=== PATIENT | male | born 1940 | race African-American/Black ===

== ENCOUNTER → 2018-10-31 | Day surgery (SDC) | payer OTHER ==
[~2018-10-31] MED LIST: ACETAMINOPHEN 325 MG TABLET PO PRN; ALBUTEROL SULFATE 2.5 MG/3 ML NEBU. NEB PRN; ATROPINE 0.5 MG/5 ML DISP.SYRIN. IV PRN; FAMO-63 PO; HYDR50TA6 PO; INSU100I27 SQ; LIDOCAINE 2% PF Vial for OR 5 ML VIAL. ONE; LOSA100T14 PO; MIDAZOLAM HCL PF 2 MG/2 ML VIAL. IV PRN; NOVALOG SQ; ONDANSETRON PF 4 MG/2 ML VIAL. IV PRN; PHENOL ORAL SPRAY 177ML BOTTLE. MM PRN; POTA20TA4 PO; PROPOFOL 40 ML IV ONE; diphenhydrAMINE 50 MG/ML VIAL IV PRN
[2018-10-31] MEDS: IV RINGERS SOLUTION,LACTATED 1,000 ML IV SCH (08:39)
[2018-10-31 11:25] VITALS: BP 156/83
--- NOTE | 2018-11-04 11:07 | PATHOLOGY ---
[facility] Accession Number: [id number] . 01 Material submitted: . PART A: colon - TRANSVERSE COLON. Modifiers: transverse PART B: colon - ASCENDING COLON. Modifiers: ascending PART C: colon - TRANSVERSE COLON BIOPSY. Modifiers: transverse . 01 Clinical history: . None provided . 02 Diagnosis: A. Transverse colon, biopsy: - Tubular adenoma. - Negative for high-grade dysplasia. . B. Ascending colon, biopsy: - Tubular adenoma. - Negative for high-grade dysplasia. . C. Transverse colon, biopsy: - Tubular adenoma. - Negative for high-grade dysplasia. . (MAP:[facility] [place]; 11/03/2018) . Co-review: Dr. Juan JAY 11/03/2018 1720 Local . 02 Electronically signed: . Alex Lomeli MD, Pathologist NPI- [id number] . 01 Gross description: . A. The specimen is received in formalin, labeled "Britton Kirit, transverse colon". Received is a segment of pale goyal soft tissue measuring 0.6 cm in maximum dimensions. The specimen is submitted entirely in cassette A1. . B. The specimen is received in formalin, labeled "Britton Kirit, ascending colon". Received are three segments of pale goyal soft tissue ranging in size from 0.2 to 0.8 cm in maximum dimensions. The specimen is submitted entirely in cassette B1. . C. The specimen is received in formalin, labeled "Britton Kirit, transverse colon biopsy". Received are two segments of pale goyal soft tissue ranging in size from 0.5 to 0.9 cm in maximum dimensions. The specimen is submitted entirely in cassette C1. ([facility]; 11/02/2018) QAC/QAC 11/02/2018 [facility] Local . 02 Pathologist provided ICD-10: D12.3, D12.2 . 02 CPT . 284001, 091919, [id number] Specimen Comment: A courtesy copy of this report has been sent to Specimen Comment: [phone], . Specimen Comment: Report sent to / DR LITTLE Performed at: [address], [place], [place] [id number] MD Fidel Thorpe MD Phone: [phone] Performed at: [address] [id number] MD Belen Matias MD Phone: [phone]
== END ==
LOC: SURG 08:03
PROVIDERS: ATTEND Internal Medicine Gastroenterology
DX: Z12.11 Encounter for screening for malignant neoplasm of colon (principal); D12.3 Benign neoplasm of transverse colon; D12.2 Benign neoplasm of ascending colon; K57.30 Diverticulosis of large intestine without perforation or abscess without bleeding; K64.8 Other hemorrhoids; K64.4 Residual hemorrhoidal skin tags; I10 Essential (primary) hypertension; E11.9 Type 2 diabetes mellitus without complications; Z86.010 Personal history of colon polyps; Z85.038 Personal history of other malignant neoplasm of large intestine; Z79.899 Other long term (current) drug therapy; Z79.4 Long term (current) use of insulin
CPT/HCPCS: 45380; 45385; 82947; 88305; J2704; J7120; J2001